=== PATIENT | male | born 2000 | race Caucasian/White ===

== ENCOUNTER 2022-01-18 05:41 | Emergency (ER) | payer OTHER ==
[2022-01-18] MEDS ORDERED: Acetaminophen 500 MG TAB ONE (06:32)
== END 2022-01-18 06:35 | disposition home or self-care (01) ==
LOC: CSHERS 05:41
DX: S92.351A Displaced fracture of fifth metatarsal bone, right foot, initial encounter for closed fracture (principal); X50.9XXA Other and unspecified overexertion or strenuous movements or postures, initial encounter